=== PATIENT | male | born 1965 | race Hispanic/Latino ===

== ENCOUNTER 2020-07-13 11:13 | Outpatient (CLI) | payer MEDICARE, OTHER ==
[2020-07-13 12:58] LABS: Hemoglobin 14.7 g/dL (13.5-17.5); Mean Corpuscular HGB CONC 31.4 g/dL (32.0-36.0); Mean Corpuscular Hemoglobin 24.5 pg (27.0-33.0); Mean Corpuscular Volume 78.1 fl (81.2-95.1); Mean Platelet Volume 10.2 fl (7.4-10.4); Platelet Count 319 10x3/uL (150-450); RBC Distribution Width 15.1 % (11.5-14.5); Red Blood Cell (RBC) Count 5.99 10x6/uL (4.32-5.72); White Blood Cell (WBC) Count 7.4 10x3/uL (3.5-10.5)
[2020-07-13 13:13] LABS: Anion Gap 16 mmol/L (10-20); BUN (Urea Nitrogen) 20 mg/dL (8.4-25.7); Calc. Creatinine Clearance 0 mL/min (70-130); Calcium 9.5 mg/dL (7.8-10.44); Carbon Dioxide 25 mmol/L (22-29); Chloride 102 mmol/L (98-107); Glucose 164 mg/dL (70-105); Potassium 5.2 mmol/L (3.5-5.1); Sodium 138 mmol/L (136-145)
[2020-07-13 13:19] LABS: INR-International Normal Ratio 0.9; PTT 26.5 sec (22.0-33.0); Prothrombin Time 10.4 sec (9.5-12.1)
[2020-07-13 17:59] LABS: SARS-CoV-2 PCR by NAA Not Detected (NotDetected)
== END 2020-07-13 11:14 | disposition home or self-care (01) ==
LOC: LABBT 11:13
PROVIDERS: ATTEND Urology
DX: Z01.818 Encounter for other preprocedural examination (principal); Z20.822 Contact with and (suspected) exposure to COVID-19; N20.0 Calculus of kidney
CPT/HCPCS: 80048; 85027; 85610; 85730; 93005; U0003; U0005; 87635; 93010

== ENCOUNTER 2020-07-18 05:59 | Day surgery (SDC) | payer MEDICARE, OTHER ==
[2020-07-15 09:55] VITALS: BMI 27.8
[2020-07-18] MEDS ORDERED: cefTRIAXone\\ROCEPHIN 2 GM VIAL ONE (06:57)
[2020-07-18] MEDS ORDERED: Sodium Chloride 0.9% 100 ML ONE (06:57)
[2020-07-18] MEDS ORDERED: Iothalamate Meglumine 60% 50 ML VIAL FS ONE (07:09)
[2020-07-18] MEDS ORDERED: Fentanyl 100 MCG/2 ML VIAL ONE (07:29)
[2020-07-18] MEDS ORDERED: Rocuronium Bromide 10 MG/ML (10ML VIAL) ONE (07:35)
[2020-07-18] MEDS ORDERED: PROPOFOL 200 MG/20 ML VIAL ONE (07:35)
[2020-07-18] MEDS ORDERED: PHENYLEPHRINE-NS 100 MCG/ML 10 ML SYRINGE ONE (07:35)
[2020-07-18] MEDS ORDERED: Lidocaine 1% PF 5 ML VIAL ONE (07:35)
[2020-07-18] MEDS ORDERED: Glycopyrrolate 0.2 MG/ML 5 ML SYRINGE ONE (07:35)
[2020-07-18] MEDS ORDERED: Ondansetron PF 4 MG/2 ML Vial ONE (07:35)
[2020-07-18] MEDS ORDERED: Oxybutynin 5 MG TAB ONE (08:50)
[2020-07-18] MEDS ORDERED: Phenazopyridine HCl 100 MG TAB ONE (09:10)
== END 2020-07-18 12:41 | disposition home or self-care (01) ==
LOC: SDC 05:59
PROVIDERS: ATTEND Urology
PROC: 0TC68ZZ Extirpation of Matter from Right Ureter, Via Natural or Artificial Opening Endoscopic (ICD-10-PCS; principal; 2020-07-18)
PROC: 0T768DZ Dilation of Right Ureter with Intraluminal Device, Via Natural or Artificial Opening Endoscopic (ICD-10-PCS; 2020-07-18)
DX: N13.2 Hydronephrosis with renal and ureteral calculous obstruction (principal); N40.1 Benign prostatic hyperplasia with lower urinary tract symptoms; N13.8 Other obstructive and reflux uropathy; R35.0 Frequency of micturition; G82.50 Quadriplegia, unspecified; N28.89 Other specified disorders of kidney and ureter; E27.8 Other specified disorders of adrenal gland; E11.9 Type 2 diabetes mellitus without complications; I10 Essential (primary) hypertension; Z87.820 Personal history of traumatic brain injury; Z79.84 Long term (current) use of oral hypoglycemic drugs; Z79.899 Other long term (current) drug therapy
CPT/HCPCS: 74018; 76000; J0696; J2405; J2704; J2710; J3010; J3490; Q9961

== ENCOUNTER 2020-07-26 08:46 | Outpatient (CLI) | payer MEDICARE, MEDICAID, OTHER | END 2020-07-26 08:47 | disposition home or self-care (01) | LOC: CT 08:46 | PROVIDERS: ATTEND Urology | DX: N20.2 Calculus of kidney with calculus of ureter (principal); N28.89 Other specified disorders of kidney and ureter; E27.8 Other specified disorders of adrenal gland; N40.0 Benign prostatic hyperplasia without lower urinary tract symptoms; K57.30 Diverticulosis of large intestine without perforation or abscess without bleeding; N28.1 Cyst of kidney, acquired; Z90.49 Acquired absence of other specified parts of digestive tract | CPT/HCPCS: 74178 ==

== ENCOUNTER 2020-07-28 10:19 | Outpatient (CLI) | payer MEDICARE, MEDICAID ==
[2020-07-28 12:48] LABS: Hemoglobin 14.8 g/dL (13.5-17.5); Mean Corpuscular HGB CONC 31.2 g/dL (32.0-36.0); Mean Corpuscular Hemoglobin 24.3 pg (27.0-33.0); Mean Platelet Volume 10.3 fl (7.4-10.4); Platelet Count 236 10x3/uL (150-450); RBC Distribution Width 15.6 % (11.5-14.5); Red Blood Cell (RBC) Count 6.08 10x6/uL (4.32-5.72)
[2020-07-28 12:52] LABS: PTT 28.9 sec (22.0-33.0); Prothrombin Time 10.9 sec (9.5-12.1)
[2020-07-28 13:33] LABS: Anion Gap 18 mmol/L (10-20); BUN (Urea Nitrogen) 20 mg/dL (8.4-25.7); Calc. Creatinine Clearance 0 mL/min (70-130); Calcium 9.4 mg/dL (7.8-10.44); Carbon Dioxide 24 mmol/L (22-29); Chloride 101 mmol/L (98-107); Glucose 132 mg/dL (70-105); Potassium 4.5 mmol/L (3.5-5.1); Sodium 138 mmol/L (136-145)
[2020-07-29 01:47] LABS: SARS-CoV-2 PCR by NAA Not Detected (NotDetected)
== END 2020-07-28 10:20 | disposition home or self-care (01) ==
LOC: LABBT 10:19
PROVIDERS: ATTEND Urology
DX: Z01.818 Encounter for other preprocedural examination (principal); N20.0 Calculus of kidney; Z20.822 Contact with and (suspected) exposure to COVID-19
CPT/HCPCS: 80048; 85027; 85610; 85730; 93005; U0003; U0005; 87635; 93010

== ENCOUNTER 2020-08-01 06:09 | Day surgery (SDC) | payer MEDICARE, MEDICAID ==
[2020-07-29 11:28] VITALS: BMI 27.8
[2020-08-01] MEDS ORDERED: Sodium Chloride 0.9% 100 ML ONE (07:32)
[2020-08-01] MEDS ORDERED: cefTRIAXone\\ROCEPHIN 2 GM VIAL ONE (07:32)
[2020-08-01] MEDS ORDERED: Vancomycin 1 GM/200 ML BAG ONE (07:32)
[2020-08-01] MEDS ORDERED: Fentanyl 100 MCG/2 ML VIAL ONE (08:41)
[2020-08-01] MEDS ORDERED: Famotidine/PF 20 mg/2ml Vial ONE (08:42)
[2020-08-01] MEDS ORDERED: SUGAMMADEX SODIUM 500 MG/5 ML VIAL ONE (08:42)
[2020-08-01] MEDS ORDERED: Iothalamate Meglumine 60% 50 ML VIAL FS ONE (08:58)
[2020-08-01] MEDS ORDERED: PROPOFOL 200 MG/20 ML VIAL ONE (09:04)
[2020-08-01] MEDS ORDERED: ePHEDrine Sulfate 50 MG/10 ML VIAL ONE (09:04)
[2020-08-01] MEDS ORDERED: Ondansetron PF 4 MG/2 ML Vial ONE (09:04)
[2020-08-01] MEDS ORDERED: Rocuronium Bromide 10 MG/ML (10ML VIAL) ONE (09:04)
[2020-08-01] MEDS ORDERED: Lidocaine 1% PF 5 ML VIAL ONE (09:04)
[2020-08-01] MEDS ORDERED: Metoclopramide HCl 10 MG/2 ML VIAL ONE (09:04)
[2020-08-01] MEDS ORDERED: PHENYLEPHRINE-NS 100 MCG/ML 10 ML SYRINGE ONE (09:04)
[2020-08-01] MEDS ORDERED: Phenazopyridine HCl 100 MG TAB ONE (10:44)
[2020-08-08 18:08] LABS: CA Oxalate Dihydrate 40 % (.); CA Oxalate Monohydrate 50 % (.); Color Brown (.); Stone Weight 30 mg (.)
== END 2020-08-01 12:13 | disposition home or self-care (01) ==
LOC: SDC 06:09
PROVIDERS: ATTEND Urology
PROC: 0TC38ZZ Extirpation of Matter from Right Kidney Pelvis, Via Natural or Artificial Opening Endoscopic (ICD-10-PCS; principal; 2020-08-01)
PROC: 0TP98DZ Removal of Intraluminal Device from Ureter, Via Natural or Artificial Opening Endoscopic (ICD-10-PCS; 2020-08-01)
PROC: 0T768DZ Dilation of Right Ureter with Intraluminal Device, Via Natural or Artificial Opening Endoscopic (ICD-10-PCS; 2020-08-01)
DX: N20.2 Calculus of kidney with calculus of ureter (principal); N40.0 Benign prostatic hyperplasia without lower urinary tract symptoms; N28.1 Cyst of kidney, acquired; N28.89 Other specified disorders of kidney and ureter; G82.50 Quadriplegia, unspecified; Z87.442 Personal history of urinary calculi; Z79.84 Long term (current) use of oral hypoglycemic drugs; Z79.899 Other long term (current) drug therapy
CPT/HCPCS: 52356; 74018; 74420; 82365; 88300; Q9961; J0696; J2405; J2704; J2765; J3010; J3370; J3490; S0028

== ENCOUNTER 2020-08-10 08:49 | Outpatient (CLI) | payer MEDICARE, OTHER | END 2020-08-10 08:50 | disposition home or self-care (01) | LOC: BICRAD 08:49 | PROVIDERS: ATTEND Urology | DX: N20.0 Calculus of kidney (principal); Z96.0 Presence of urogenital implants | CPT/HCPCS: 74018 ==

== ENCOUNTER 2020-09-28 12:58 | Outpatient (CLI) | payer MEDICARE, OTHER, MEDICAID | END 2020-09-28 12:59 | disposition home or self-care (01) | LOC: NM 12:58 | PROVIDERS: ATTEND Urology | DX: N13.2 Hydronephrosis with renal and ureteral calculous obstruction (principal) | CPT/HCPCS: 78708; A4641; A9562 ==

== ENCOUNTER 2021-10-20 12:38 | Outpatient (CLI) | payer MEDICARE, OTHER, MEDICAID | END 2021-10-20 12:39 | disposition home or self-care (01) | LOC: LABBT 12:38 | PROVIDERS: ATTEND Urology | DX: Z01.810 Encounter for preprocedural cardiovascular examination (principal); Z12.5 Encounter for screening for malignant neoplasm of prostate; G82.50 Quadriplegia, unspecified; C64.9 Malignant neoplasm of unspecified kidney, except renal pelvis; N20.0 Calculus of kidney; N40.1 Benign prostatic hyperplasia with lower urinary tract symptoms; R33.8 Other retention of urine; N13.30 Unspecified hydronephrosis; D35.01 Benign neoplasm of right adrenal gland; B19.20 Unspecified viral hepatitis C without hepatic coma; N28.89 Other specified disorders of kidney and ureter; E11.9 Type 2 diabetes mellitus without complications; Z90.5 Acquired absence of kidney; Z87.828 Personal history of other (healed) physical injury and trauma | CPT/HCPCS: 93005; 93010 ==

== ENCOUNTER 2021-10-25 06:13 | Day surgery (SDC) | payer MEDICARE, OTHER, MEDICAID ==
[2021-10-20 13:28] LABS: Hemoglobin 14.6 g/dL (13.5-17.5); Mean Corpuscular HGB CONC 32.2 g/dL (32.0-36.0); Mean Corpuscular Hemoglobin 24.2 pg (27.0-33.0); Mean Corpuscular Volume 75.2 fl (81.2-95.1); Mean Platelet Volume 10.1 fl (7.4-10.4); Platelet Count 209 10x3/uL (150-450); RBC Distribution Width 14.9 % (11.5-14.5); Red Blood Cell (RBC) Count 6.04 10x6/uL (4.32-5.72); White Blood Cell (WBC) Count 7.6 10x3/uL (3.5-10.5)
[2021-10-20 13:36] LABS: INR-International Normal Ratio 0.9; PTT 26.8 sec (22.0-33.0); Prothrombin Time 10.2 sec (9.5-12.1)
[2021-10-20 13:41] LABS: Anion Gap 14 mmol/L (10-20); BUN (Urea Nitrogen) 24 mg/dL (8.4-25.7); Calc. Creatinine Clearance 0 mL/min (70-130); Calcium 9.3 mg/dL (7.8-10.44); Carbon Dioxide 25 mmol/L (22-29); Chloride 104 mmol/L (98-107); Estimated GFR 94; Glucose 137 mg/dL (70-105); Sodium 138 mmol/L (136-145)
[2021-10-20 13:44] LABS: Potassium 5.2 mmol/L (3.5-5.1)
[2021-10-23 12:00] VITALS: BMI 24.4
[2021-10-25] MEDS ORDERED: Famotidine/PF 20 mg/2ml Vial ONE (08:13)
[2021-10-25] MEDS ORDERED: SUGAMMADEX SODIUM 200 MG/2 ML VIAL ONE (08:13)
[2021-10-25] MEDS ORDERED: fentaNYL Citrate/PF 100 MCG/2 ML SYRINGE ONE (08:13)
[2021-10-25] MEDS ORDERED: Levofloxacin 500 mg/D5W 100 ml Premix Bag ONE (08:19)
[2021-10-25] MEDS ORDERED: Ondansetron PF 4 MG/2 ML Vial ONE (08:34)
[2021-10-25] MEDS ORDERED: Lidocaine 1% PF 5 ML VIAL ONE (08:34)
[2021-10-25] MEDS ORDERED: Phenylephrine 10 MG/ML VIAL ONE (08:34)
[2021-10-25] MEDS ORDERED: PROPOFOL 200 MG/20 ML VIAL ONE (08:34)
[2021-10-25] MEDS ORDERED: Rocuronium Bromide 10 MG/ML (10ML VIAL) ONE (08:34)
[2021-10-25] MEDS ORDERED: Iopamidol 45 ML ONE (08:44)
[2021-10-25] MEDS ORDERED: Phenazopyridine HCl 100 MG TAB ONE (09:28)
== END 2021-10-25 11:05 | disposition home or self-care (01) ==
LOC: SDC 06:13
PROVIDERS: ATTEND Urology
PROC: 0TC38ZZ Extirpation of Matter from Right Kidney Pelvis, Via Natural or Artificial Opening Endoscopic (ICD-10-PCS; principal; 2021-10-25)
PROC: 0T768DZ Dilation of Right Ureter with Intraluminal Device, Via Natural or Artificial Opening Endoscopic (ICD-10-PCS; 2021-10-25)
DX: N20.0 Calculus of kidney (principal); N30.80 Other cystitis without hematuria; E11.9 Type 2 diabetes mellitus without complications; I10 Essential (primary) hypertension; G82.50 Quadriplegia, unspecified; Z85.528 Personal history of other malignant neoplasm of kidney; Z79.84 Long term (current) use of oral hypoglycemic drugs; Z79.899 Other long term (current) drug therapy; Z90.5 Acquired absence of kidney; Z20.822 Contact with and (suspected) exposure to COVID-19
CPT/HCPCS: 74018; 74420; 80048; 82365; 85027; 85610; 85730; 86850; 86900; 86901; 87811; 88300; C2617; J1956; J2370; J2405; J2704; Q9967; S0028

== ENCOUNTER 2021-12-06 08:36 | Outpatient (CLI) | payer MEDICARE, MEDICAID | END 2021-12-06 08:37 | disposition home or self-care (01) | LOC: LABBT 08:36 | PROVIDERS: ATTEND Internal Medicine | DX: Z20.822 Contact with and (suspected) exposure to COVID-19 (principal) | CPT/HCPCS: 87811 ==

== ENCOUNTER 2021-12-11 06:55 | Day surgery (SDC) | payer MEDICARE, MEDICAID ==
[2021-12-08 09:03] VITALS: BMI 25.7
[2021-12-11] MEDS ORDERED: Fentanyl 100 MCG/2 ML VIAL ONE (08:34)
[2021-12-11] MEDS ORDERED: PROPOFOL 200 MG/20 ML VIAL ONE (08:47)
== END 2021-12-11 10:30 | disposition home or self-care (01) ==
LOC: SDC 06:55
PROVIDERS: ATTEND Internal Medicine
PROC: 0DB38ZX Excision of Lower Esophagus, Via Natural or Artificial Opening Endoscopic, Diagnostic (ICD-10-PCS; principal; 2021-12-11)
PROC: 0DB78ZX Excision of Stomach, Pylorus, Via Natural or Artificial Opening Endoscopic, Diagnostic (ICD-10-PCS; 2021-12-11)
PROC: 0DBH8ZX Excision of Cecum, Via Natural or Artificial Opening Endoscopic, Diagnostic (ICD-10-PCS; 2021-12-11)
DX: D50.9 Iron deficiency anemia, unspecified (principal); D12.0 Benign neoplasm of cecum; K31.7 Polyp of stomach and duodenum; K21.00 Gastro-esophageal reflux disease with esophagitis, without bleeding; K57.30 Diverticulosis of large intestine without perforation or abscess without bleeding; K64.8 Other hemorrhoids; K22.10 Ulcer of esophagus without bleeding; K44.9 Diaphragmatic hernia without obstruction or gangrene; K76.0 Fatty (change of) liver, not elsewhere classified; Z85.528 Personal history of other malignant neoplasm of kidney; Z86.010 Personal history of colon polyps; Z79.84 Long term (current) use of oral hypoglycemic drugs; Z79.899 Other long term (current) drug therapy; Z90.5 Acquired absence of kidney
CPT/HCPCS: 88305; 88342; J2704; J3010

== ENCOUNTER 2022-06-04 13:17 | Outpatient (CLI) | payer MEDICARE, MEDICAID | END 2022-06-04 13:18 | disposition home or self-care (01) | LOC: BICRAD 13:17 | PROVIDERS: ATTEND Urology | DX: N20.0 Calculus of kidney (principal); K31.89 Other diseases of stomach and duodenum | CPT/HCPCS: 74018 ==

== ENCOUNTER 2023-10-11 07:24 | Outpatient (CLI) | payer OTHER, MEDICAID ==
[2023-10-11] MEDS ORDERED: Iopamidol 370 76% 100 ML VIAL ONE (11:35)
== END 2023-10-11 07:25 | disposition home or self-care (01) ==
LOC: CT 07:24
PROVIDERS: ATTEND Urology
DX: C64.9 Malignant neoplasm of unspecified kidney, except renal pelvis (principal); D35.01 Benign neoplasm of right adrenal gland; N20.0 Calculus of kidney; N28.1 Cyst of kidney, acquired; N40.0 Benign prostatic hyperplasia without lower urinary tract symptoms; Z90.5 Acquired absence of kidney
CPT/HCPCS: 74178; Q9967

== ENCOUNTER 2024-05-11 07:39 | Outpatient (CLI) | payer MEDICARE | END 2024-05-11 07:40 | disposition home or self-care (01) | LOC: ULT 07:39 | PROVIDERS: ATTEND Urology | DX: C64.9 Malignant neoplasm of unspecified kidney, except renal pelvis (principal); N40.1 Benign prostatic hyperplasia with lower urinary tract symptoms; R33.8 Other retention of urine; R35.0 Frequency of micturition; N20.0 Calculus of kidney; N21.0 Calculus in bladder; R93.422 Abnormal radiologic findings on diagnostic imaging of left kidney; Z90.5 Acquired absence of kidney | CPT/HCPCS: 74018; 76770 ==